=== PATIENT | male | born 1965 | race Caucasian/White ===

== ENCOUNTER 2021-02-08 05:47 | Inpatient (IN) | payer OTHER ==
[~2021-02-08] VITALS: Ht 177.8 cm; Wt 68.0 kg
[~2021-02-08 05:47] MED LIST: ALDACTONE 25MG25 MG PO; AMLODIPINE BESYL5 MG PO; ASPIRIN EC81 MG PO; ATORVASTATIN CA20 MG PO; AUGMENTIN 875-1 EACH PO; CARVEDILOL25 MG PO; ERYTHROMYCIN O3.5 GM OU; LISINOPRIL10 MG PO; PERCOCET 5/325 T1 EA PO
[2021-02-08 07:27] LABS: HEMOGLOBIN 15.6 gm/dl (14.0-17.5); RED BLOOD COUNT 5.12 M/UL (4.20-5.50); WHITE BLOOD COUNT 13.2 K/UL (4.5-11.0)
[2021-02-09 05:06] LABS: HEMOGLOBIN 14.2 gm/dl (14.0-17.5); WHITE BLOOD COUNT 11.8 K/UL (4.5-11.0)
[2021-02-09 05:08] LABS: RED BLOOD COUNT 4.57 M/UL (4.20-5.50)
[2021-02-13] MEDS ORDERED: LISINOPRIL10 MG PO (13:50)
[2021-02-13] MEDS ORDERED: ISOSORBIDE MONO30 MG PO (13:50)
[2021-02-13] MEDS ORDERED: CARVEDILOL25 MG PO (13:50)
[2021-02-13] MEDS ORDERED: LASIX40 MG PO (13:58)
[2021-02-13] MEDS ORDERED: CHLORTHALIDONE25 MG PO (13:58)
[2021-02-13] MEDS ORDERED: K-DUR TAB 10 M10 MEQ PO (13:58)
[2021-02-13] MEDS ORDERED: FLOMAX0.4 MG PO (14:08)
== END 2021-02-13 15:33 | disposition home or self-care (01) | DRG 291 ==
LOC: ER1 → CDU 05:52 → CCU 05:52 → MED SURG 4 05:52 → CCU 08:06 → MED SURG 4 02-09 16:17
PROVIDERS: Internal Medicine Interventional Cardiology; ADMIT Internal Medicine
DX: I13.0 Hypertensive heart and chronic kidney disease with heart failure and stage 1 through stage 4 chronic kidney disease, or unspecified chronic kidney disease (principal); J96.01 Acute respiratory failure with hypoxia; I50.23 Acute on chronic systolic (congestive) heart failure; M62.82 Rhabdomyolysis; N17.9 Acute kidney failure, unspecified; N18.30 Chronic kidney disease, stage 3 unspecified; N18.9 Chronic kidney disease, unspecified; I25.10 Atherosclerotic heart disease of native coronary artery without angina pectoris; F19.10 Other psychoactive substance abuse, uncomplicated; F17.200 Nicotine dependence, unspecified, uncomplicated; Z98.890 Other specified postprocedural states; I16.0 Hypertensive urgency
CPT/HCPCS: 36415; 36600; 71045; 80048; 80053; 80061; 80307; 81001; 82550; 82553; 82570; 82803; 83036; 83605; 83874; 83880; 83935; 84300; 84439; 84443; 84484; 84550; 85025; 86140; 96365; 99285; J1650; J1940; J2270; J2405

== ENCOUNTER 2021-10-06 21:04 | Inpatient (IN) | payer OTHER ==
[~2021-10-06] VITALS: Ht 175.3 cm; Wt 71.4 kg
[~2021-10-06 21:04] MED LIST changes: +CHLORTHALIDONE25 MG PO; +FLOMAX0.4 MG PO; +ISOSORBIDE MONO30 MG PO; +K-DUR TAB 10 M10 MEQ PO; +LASIX40 MG PO
[2021-10-06 21:49] LABS: HEMOGLOBIN 16.8 gm/dl (14.0-17.5); RED BLOOD COUNT 5.26 M/UL (4.20-5.50); WHITE BLOOD COUNT 12.8 K/UL (4.5-11.0)
[2021-10-08 02:41] LABS: HEMOGLOBIN 16.6 gm/dl (14.0-17.5); RED BLOOD COUNT 5.25 M/UL (4.20-5.50); WHITE BLOOD COUNT 9.8 K/UL (4.5-11.0)
[2021-10-09 03:10] LABS: RED BLOOD COUNT 5.05 M/UL (4.20-5.50); WHITE BLOOD COUNT 10.1 K/UL (4.5-11.0)
[2021-10-10 09:24] LABS: HEMOGLOBIN 14.6 gm/dl (14.0-17.5); RED BLOOD COUNT 4.82 M/UL (4.20-5.50); WHITE BLOOD COUNT 8.5 K/UL (4.5-11.0)
[2021-10-10] MEDS ORDERED: AMLODIPINE BESYL5 MG PO (10:25)
[2021-10-10] MEDS ORDERED: IPRAT-ALBUT 0.5-3 ML NEB (10:25)
[2021-10-10] MEDS ORDERED: HYDRALAZINE HCL25 MG PO (10:25)
[2021-10-10] MEDS ORDERED: BAYER CHEWABLE81 MG PO (10:25)
[2021-10-10] MEDS ORDERED: LISINOPRIL10 MG PO (10:25)
[2021-10-10] MEDS ORDERED: FLOMAX0.4 MG PO (10:25)
[2021-10-10] MEDS ORDERED: DOXYCYCLINE HY100 M2 PO (10:25)
[2021-10-10] MEDS ORDERED: CARVEDILOL12.5 MG PO (10:25)
--- NOTE | 2021-10-10 21:45 | NUR ---
[id number] from [employer] called requested copy of patients echo report, report faxed.
[2021-10-11 06:46] LABS: HEMOGLOBIN 14.7 gm/dl (14.0-17.5); RED BLOOD COUNT 4.66 M/UL (4.20-5.50); WHITE BLOOD COUNT 9.5 K/UL (4.5-11.0)
[2021-10-11] MEDS ORDERED: LASIX40 MG PO (15:06)
== END 2021-10-11 16:15 | disposition home or self-care (01) | DRG 291 ==
LOC: ER1 21:04 → M/S 23:12 → PROG CARE 23:12 → CDU 23:12 → PROG CARE 10-07 01:43 → M/S 10-08 09:14
PROVIDERS: Internal Medicine; Preventive Medicine Occupational Medicine; ADMIT Internal Medicine
DX: I13.0 Hypertensive heart and chronic kidney disease with heart failure and stage 1 through stage 4 chronic kidney disease, or unspecified chronic kidney disease (principal); J18.9 Pneumonia, unspecified organism; I50.23 Acute on chronic systolic (congestive) heart failure; I16.1 Hypertensive emergency; Z20.822 Contact with and (suspected) exposure to COVID-19; N17.9 Acute kidney failure, unspecified; I25.5 Ischemic cardiomyopathy; F17.200 Nicotine dependence, unspecified, uncomplicated; F41.9 Anxiety disorder, unspecified; F15.19 Other stimulant abuse with unspecified stimulant-induced disorder; I25.10 Atherosclerotic heart disease of native coronary artery without angina pectoris; Z91.14 Patient's other noncompliance with medication regimen; Z90.49 Acquired absence of other specified parts of digestive tract; Z90.89 Acquired absence of other organs; Z83.3 Family history of diabetes mellitus
CPT/HCPCS: ECHO; 36415; 70450; 71045; 80048; 80053; 80307; 82436; 82550; 82553; 82570; 83690; 83874; 83880; 84100; 84133; 84156; 84300; 84484; 85025; 85610; 85652; 85730; 86140; 93005; 93306; 94640; 94664; 94760; 96374; 96375; 96376; 99285; A6212; G0378; J0360; J0696; J1650; J1940; J2405; J7030; U0002

== ENCOUNTER 2021-10-12 12:51 | Emergency (ER) | payer OTHER ==
[~2021-10-12 12:51] MED LIST changes: +BAYER CHEWABLE81 MG PO; +CARVEDILOL12.5 MG PO; +DOXYCYCLINE HY100 M2 PO; +HYDRALAZINE HCL25 MG PO; +IPRAT-ALBUT 0.5-3 ML NEB
[2021-10-12 14:00] LABS: HEMOGLOBIN 13.6 gm/dl (14.0-17.5); RED BLOOD COUNT 4.29 M/UL (4.20-5.50); WHITE BLOOD COUNT 9.4 K/UL (4.5-11.0)
== END 2021-10-12 16:16 | disposition home or self-care (01) ==
LOC: ER1 12:51
PROVIDERS: Nurse Practitioner
DX: R42 Dizziness and giddiness (principal); I25.2 Old myocardial infarction; F17.200 Nicotine dependence, unspecified, uncomplicated; Z20.822 Contact with and (suspected) exposure to COVID-19
CPT/HCPCS: 70450; 80053; 81001; 82550; 82553; 83874; 84484; 85025; 85610; 85730; 93005; 99284; U0002